=== PATIENT | male | born 1990 | race Caucasian/White ===

== ENCOUNTER 2022-03-16 12:40 | Outpatient (CLI) | payer OTHER, SELFPAY ==
--- NOTE | 2022-03-16 13:00 | MR_ITS ---
[address] [address] Phone:?[phone] Fax:?[phone] Referring Physician Information: Mayra Ochoa [address] [facility] [address] Phone:?[phone] Fax:?[phone] Patient:?Albaro Bartholomew D.O.B:?1990 Sex:?Male Phone:?[phone] [facility] MRN:?[id number] Exam Date:?03/16/2022 ? EXAM: MRI of the LEFT KNEE, without contrast CLINICAL HISTORY: Left knee pain. Evaluate for medial meniscal tear. COMPARISONS: Plain radiographs 03/03/2022. TECHNICAL: MR sequences of the left knee: sagittals: PD, PDFS coronals: PD, T2FS axials: PD, PDFS CONTRAST: None SEDATION: None FINDINGS: Bones: No fracture, bone marrow contusion, or other suspicious bone marrow signal abnormality. Patellofemoral joint: Cartilage: 2.0 x 2.0 cm area of grade I chondromalacia centered over the mid and inferior portions of the median patellar ridge best seen on sagittal series 6 images 13 through 19. Retinacula: The medial and lateral retinacula are intact. Fat pads: The infrapatellar, quadriceps, and prefemoral fat pads are unremarkable. Knee joint: Effusion: Physiologic amount of joint fluid. Popliteal cyst: None. Intra-articular bodies: None. Posteromedial corner: The semimembranosus and pes anserine tendons are intact. Medial compartment: Medial meniscus: Intact. Cartilage: Tiny 2 x 2 mm focus of grade I to II chondromalacia over the posterior weightbearing portion of the medial femoral condyle best seen on sagittal series 6 image 10. Lateral compartment: Lateral meniscus: Intact. Cartilage: Intact. Ligaments: Anterior cruciate ligament: Intact. Posterior cruciate ligament: Intact. Medial collateral ligament: Intact. Posterior oblique ligament: Intact. Fibular collateral ligament: Intact. Posterolateral corner: The distal biceps femoris tendon, iliotibial band, popliteus tendon, popliteus muscle, popliteofibular ligament, and arcuate ligament are intact. Extensor mechanism: Patellar tendon: Intact. Quadriceps tendon: Intact. IMPRESSION: 1. 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 Tiny 2 x 2 mm focus of grade I to II chondromalacia over the posterior weightbearing portion of the medial femoral condyle. No degenerative subchondral cystic changes/degenerative subchondral edema-like signal. 2. Otherwise, unremarkable MRI of the left knee without osseous, ligamentous, tendinous, or meniscal pathology. RCB Electronically signed on 03/16/2022 4:39:00 PM by Edwin Morales M.D.
== END 2022-03-16 12:41 | disposition home or self-care (01) ==
PROVIDERS: PCP Family Medicine; Visit Provider Physician Assistant Surgical
DX: M25.562 Pain in left knee (principal); M22.42 Chondromalacia patellae, left knee
CPT/HCPCS: 73721

== ENCOUNTER 2023-03-30 16:35 | Outpatient (CLI) | payer BC, SELFPAY ==
--- NOTE | 2023-03-30 16:45 | CRLHL7_ITS ---
For Patients: As a result of the Century Cures Act, medical imaging exams and procedure reports are released immediately into your electronic medical record. You may view this report before your referring provider. If you have questions, please contact your health care provider. INDICATION: Chronic sinusitis. TECHNIQUE: High-resolution CT images of the paranasal sinuses are obtained. Axial, coronal and sagittal reconstructions are reviewed. FINDINGS: Maxillary sinuses: There is partial opacification of bilateral maxillary sinuses with air-fluid levels and mucosal thickening. Mucosal thickening measures 10 mm or less bilaterally. There is associated mucosal occlusion of the ostiomeatal units bilaterally. Ethmoid: Partial opacification of the anterior ethmoid air cells bilaterally. Frontal: The frontal air cells are hypoplastic there is mucosal thickening in the inferior frontal air cells and inferior recesses. Sphenoid: The sphenoid air cells are clear there is mild mucosal thickening at the sphenoid ethmoidal recesses. Nasal fossa: There is mild convex left nasal septal curvature there is mucosal thickening involving the middle nasal turbinates bilaterally and associated mucosal narrowing of the middle meatus bilaterally. The posterior nasal fossa and the nasopharynx otherwise unremarkable. Multiple dental caries. IMPRESSION: 1. Changes consistent with pansinusitis. 2. Near complete opacification of bilateral maxillary sinuses with mucosal thickening and air-fluid levels. Correlate clinically possible symptoms of acute on chronic sinusitis. 3. Less prominent mucosal thickening in the anterior ethmoid and inferior frontal sinuses. 4. Mucosal disease occludes the bilateral ostiomeatal units. 5. Poor dentition. Please note that all CT scans at this facility use dose modulation, iterative reconstruction, and/or weight-based dosing when appropriate to reduce radiation dose to as low as reasonably achievable. Dictated by Eric Akers MD @ 03/31/2023 1:26:38 PM (Electronically Signed)
== END 2023-03-30 16:36 | disposition home or self-care (01) ==
LOC: CT 16:36
PROVIDERS: PCP Family Medicine; Visit Provider Otolaryngology
DX: J32.9 Chronic sinusitis, unspecified (principal); J32.4 Chronic pansinusitis; J32.0 Chronic maxillary sinusitis
CPT/HCPCS: 70486

== ENCOUNTER 2024-11-25 01:44 | Emergency (ER) | payer BC, SELFPAY ==
--- OUTSIDE RECORDS SUMMARY | 2024-11-25 01:47 | XMS_ITS | Clinical Summary ---
Author Organization [facility] Address [address] [place] [id number] Care Team Providers Care Out And Out Cigar Maker Hand Name Role Phone No Ref-Primary, Physician Primary Care Provider Allergies Active Allergy Reactions Criticality Noted Date Comments Amoxicillin 11/10/2010 Other Reaction(s): *Unknown - Pt Doesn't Remember hives As a child Medications No known medications Active Problems Problem Noted Date Diagnosed Date Asthma 05/13/2013 Overview (04/01/2023): Asthma as a child, as adult sometimes needs albuteral for exercise and gets tight with colds. Social History Tobacco Use Types Packs/Day Years Used Date Smoking Tobacco: Never Passive Smoke Exposure: Never Smokeless Tobacco: Never Adolescent Education Answer Date Record ed Getting School Help Needed Not on file 04/01 Sex and Gender Information Value Date Recorded Sex Assigned at Not on file Legal Sex Male 12:58 PM MEDICATION AIDE Gender Identity Not on file Sexual Orientation Not on file Last Filed Vital Signs Vital Sign Reading Time Taken Comments Blood Pressure 109/70 04/01/2023 1:08 PM MEDICATION AIDE Pulse 80 04/01/2023 1:08 PM MEDICATION AIDE Temperature 36.4 C (97.6 F) 04/01/2023 1:08 PM MEDICATION AIDE Respiratory Rate - - Oxygen Saturation 97% 04/01/2023 1:08 PM MEDICATION AIDE Inhaled Oxygen Concentration - - Weight - - Height - - Body Mass Index - - Plan of Treatment Health Maintenance Due Date Last Done Comments ADVANCE CARE PLANNING 1990 ANNUAL REVIEW OF HM ORDERS 1990 ASTHMA ACTION PLAN 1990 ASTHMA CONTROL TEST 1990 DIABETES SCREENING 1990 HIV SCREENING 05/17/2003 YEARLY PREVENTIVE VISIT 09/26/2003 09/25/2002 HEPATITIS C SCREENING 2006 PNEUMOCOCCAL VACCINE: PEDIATRICS (0 to 5 YEARS) AND AT-RISK PATIENTS (6 to 49 YEARS) (1 of 2 - PCV) 05/17/2007 PHQ-2 (once per calendar year) 2024 COVID-19 VACCINE (3 - season) 2024 04/20/2021, 03/23/2021 INFLUENZA VACCINE (#1) 2024 4, 12/30/1999, 11/27/1996 DTAP/TDAP/TD VACCINE (8 - Td or Tdap) 08/31/2028 08/31/2018, 07/08/2008, 02/15/2000, Additional history exists ZOSTER VACCINE (1 of 2) 2038 HEPATITIS B VACCINE Completed 02/15/2000, 09/20/1999, 08/09/1999 MENINGITIS VACCINE Aged Out 07/08/2008 No longer eligible based on patient's age to complete this topic HPV VACCINE (No Doses Required) Completed Insurance [place] [address] [place] [address] Care Teams Out And Out Cigar Maker Hand Relationship Specialty Start Date End Date No Ref-Primary, Physician PCP - General 04/01/23
--- OUTSIDE RECORDS SUMMARY | 2024-11-25 01:47 | XMS_ITS | Clinical Summary ---
Author Organization [facility] Address [address] [place] [address] Care Team Providers Care Glaze Mixer Name Role Phone Arsh Recio MD Primary Care Provider Saima romano Allergies Active Allergy Reactions Criticality Noted Date Comments Amoxicillin *Unknown - Pt Doesn't Remember 10/22 As a child Medications loratadine (CLARITIN) 10 mg tabletIndications :Nasal inflammation due to allergen Take 1 tablet by mouth once daily if needed for Allergy Symptoms. 0 4 Active budesonide-formot alessandro (SYMBICORT) 80-4.5 mcg/actuation (80-4.5 mcg each actuation) inhalerIndication s:Unspecified asthma(493.90) Inhale 2 Puffs by mouth once daily. if URI or using albuteral more than twice weekly (fill on request) 1 Inhaler 0 4 Active albuterol HFA (PRO-AIR,VENTOLIN ,PROVENTIL) 90 mcg/actuation inhalerIndication s:Unspecified asthma(493.90) Inhale 1-2 Puffs by mouth every 4 hours if needed for Shortness Of Breath or Wheezing. (fill on request) 1 Inhaler 0 4 Active fluticasone (50 mcg per actuation) nasal solution (FLONASE) Inhale 2 Sprays into both nostrils once daily. for prevention of post nasal drip, congestion and mouth breathing 1 Bottle prn 4 Active cyclobenzaprine (FLEXERIL) 10 mg tabletIndications :Tendinitis of forearm Take 1 Tablet (10 mg) by mouth 3 times daily if needed for Muscle Spasm. 12 Tablet Active Active Problems Problem Noted Date Diagnosed Date Unspecified asthma(493.90) 05/13/2013 Overview (05/13/2013): Asthma as a child, as adult sometimes needs albuteral for exercise and gets tight with colds. Nasal inflammation due to allergen 05/13/2013 Overview (05/13/2013): Animal dander, sometimes pollen gives nasal allergies. Contact allergies to animal saliva. Encounters Date Type Department Care Team Description 09/24/2024 Telephone [facility] [address] [place] [address] Arsh Recio MD Error-please disregard 09/22/2024 2:10 PM CDT - 09/22/2024 3:50 PM CDT Emergency [facility] [address] [place] [address] Majo Carney PA Tendinitis of forearm (Primary Dx) Discharge Disposition: Home Self Care 09/22/2024 Travel from Last 3 Months Immunizations Immunization Administration Dates Next Due DTP 07/16/1992, 1,1988,09/20/18 89,1988 HIB HbOC (HibTITER) 05/09/1991,04/04/1990 Hepatitis A (Adult) 07/08/2008 01/08/2009 Hepatitis B (Peds) 02/15/2000, 0,09/20/1999,08/09/19 00 Influenza, IIV3 (Age >=3 years) 12/30/1999,11/27 MMR 08/03/2000,08/08/1989 Meningococcal Vaccine (Menactra) 07/08/2008 Oral Polio Vaccine 07/16/1992, 1,1988,08/02/18 89 Td (Age >=7 Years) 02/15/2000 Tdap 07/08/2008 Family History Medical History Relation Name Comments Good Health Father Good Health Mother Asthma Paternal Grandfather Manuel Good Health Sister Martina Relation Name Status Comments Brother none Father Alive Mother Alive Paternal Grandfather Manuel (Age 82) ci rrhosis of live Sister Martina Alive Social History Tobacco Use Types Packs/Day Years Used Date Smoking Tobacco: Former Smokeless Tobacco: Former Alcohol Use Standard Drinks/Week Comments Yes 0 (1 standard drink = 0.6 oz pur e alcohol) occ Interpersonal Safety Answer Date Record ed Are you being hit, kicked, p ushed or yelled at (see row info)? 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 Not on file Not on file Not on file Obstetrics History Last Filed Vital Signs Vital Sign Reading Time Taken Comments Blood Pressure 129/83 09/22/2024 2:01 PM CDT Pulse 57 09/22/2024 2:01 PM CDT Temperature 36.6 C (97.9 F) 09/22/2024 2:01 PM CDT Respiratory Rate 16 09/22/2024 2:01 PM CDT Oxygen Saturation 96% 09/22/2024 2:01 PM CDT Inhaled Oxygen Concentration - - Weight 117.9 kg (260 lb) 09/22/2024 2:01 PM CDT Height 180.3 cm (5' 11) 09/22/2024 2:05 PM CDT Body Mass Index 36.26 09/22/2024 2:01 PM CDT Plan of Treatment Health Maintenance Due Date Last Done Comments Depression screening for age 12+ 2000 HPV series for age 9-45 (1 - 3-dose SCDM series) 05/17/2015 BMI (ht and wt on same day) for age 18+ 08/09/2016 08/10/2015 Tetanus booster 07/08/2018 07/08/2008, 02/15/2000 Lipids for age 35-44 05/17/2023 COVID-19 vaccine series ( season) 2024 Influenza Vaccine (#1) 2024 12/30/1999, 1996 RSV vaccine for adults or (1 - 1-dose 75+ series) 05/17/2063 Hepatitis B series for 19+ Completed 02/14, 09/20/1999, 09/20/1999, Additional history exists HIV for age 15-65 Completed 01/07/2015, 08/18/2012 Hepatitis C screening for age 18-79 Completed 01/07/2015, 08/18/2012 Pneumococcal series for age 6-49 Aged Out No longer eligible based on patient's age to complete this topic Procedures Procedure Name Priority Date/Time Associated Diagnosis Comments ANTI HIV 1/2 Routine 01/07/2015 9:12 AM SNIPPER Screen for STD (sexually transmitted disease) ANTI HCV Routine 01/07/2015 9:12 AM SNIPPER Screen for STD (sexually transmitted disease) from Last 3 Months or Most Recently Relevant to Health Maintenance Results * ANTI HCV (01/07/2015 9:12 AM SNIPPER) HEPATITIS C ANTIBODY Non-Reacti ve Non-Reacti ve 01/07/2015 4:11 PM SNIPPER [facility] Blood specimen (specimen) BLOOD SPECIMEN / Unknown Venipuncture / Unknown 01/07/2015 9:12 AM SNIPPER 01/07/2015 9:12 AM SNIPPER Narrative [facility] 01/07/2015 4:11 PM SNIPPER Antibodies to HCV not detected; does not exclude the possibility of exposure to HCV. us Ok Keller NP SEND OUTS Final Resul t [facility] [address] [place] [address], * ANTI HIV 1/2 (01/07/2015 9:12 AM SNIPPER) HIV-1/HIV-2 ANTIBODY Non-Reacti ve Non-Reacti ve 01/07/2015 4:12 PM SNIPPER [facility] Blood specimen (specimen) BLOOD SPECIMEN / Unknown Venipuncture / Unknown 01/07/2015 9:12 AM SNIPPER 01/07/2015 9:12 AM SNIPPER Narrative [facility] - 01/07/2015 4:12 PM SNIPPER HIV-1 p24 and HIV-1/HIV-2 Ab not detected us Ok Keller [employer] SEND OUTS Final Resul t [facility] [address] [place] [address], [place] from Last 3 Months or Most Recently Relevant to Health Maintenance Insurance [facility] * Guarantor: EMILY ELL[place] ESCREEN Account Type Relation to Patient Date of Phone Billing Address [employer] 1981 [place] [id number] ATTN A/P [address] [address] [place] [address] Care Teams Glaze Mixer Relationship Specialty Start Date End Date Arsh Recio MD PCP - General Family Practice 11/29/10
[2024-11-25 01:50] VITALS: BP 128/82; PULSE 82; RESP 18; TEMP 36.7; O2SAT 95; BMI 36.3
[2024-11-25] MEDS: AZITHROMYCIN 250 MG TABLET 500 MG PO (02:14)
[2024-11-25] MEDS: IPRAT-ALBUT 0.5-2.5 MG/3 ML NEB 1 NEB IH (02:15)
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
[2024-11-25 02:32] VITALS: BP 123/73; PULSE 78; RESP 20
== END 2024-11-25 02:33 | disposition home or self-care (01) ==
PROVIDERS: Emergency Provider Family Medicine; PCP Family Medicine
DX: J45.901 Unspecified asthma with (acute) exacerbation (principal)
CPT/HCPCS: 99283; 99284; A9270; J7512